=== PATIENT | male | born 1970 ===

== ENCOUNTER 2022-01-22 05:30 | Day surgery (SDC) | payer OTHER ==
[~2022-01-22] VITALS: Ht 170.2 cm; Wt 77.1 kg
[~2022-01-22 05:30] MED LIST: PROPECIA1 MG; SERTRALINE20 MG/1 ML
== END 2022-01-22 11:20 | disposition home or self-care (01) ==
LOC: CIR.AMB 05:30
PROVIDERS: ATTEND Orthopaedic Surgery
DX: M75.121 Complete rotator cuff tear or rupture of right shoulder, not specified as traumatic (principal); M75.21 Bicipital tendinitis, right shoulder; M24.111 Other articular cartilage disorders, right shoulder; M75.41 Impingement syndrome of right shoulder; E78.5 Hyperlipidemia, unspecified